=== PATIENT | male | born 1980 | race African-American/Black ===

== ENCOUNTER 2019-04-20 13:04 | Emergency (ER) | payer MEDICARE, OTHER ==
[~2019-04-20] VITALS: Ht 180.3 cm; Wt 104.3 kg
--- NOTE | 2019-04-20 13:07 | NUR ---
PT BIBRA FOR THE STREET FOR ANXIETY/PTSD AND S/I. PT TO BED 14, PT AAOX4, PT ON MONITOR, -SOB, SUICIDE PRECAUTIONS STARTED. VSEDITA Worley NOTED, PENDING MD HAINES
[2019-04-20 13:59] LABS: BASOPHILS # (AUTO) 0.1 /CMM (0.0-0.2); BASOPHILS % (AUTO) 0.7 % (0.0-2.0); HEMATOCRIT 42 % (39-51); HEMOGLOBIN 13.8 g/dL (13.5-17.5); LYMPHOCYTES # (AUTO) 0.8 /CMM (0.8-4.8); LYMPHOCYTES % (AUTO) 7.3 % (20.0-44.0); MEAN CORPUSCULAR HGB CONC 33 g/dl (31.0-36.0); MEAN CORPUSCULAR VOLUME 82 fL (80-96); MONOCYTES # (AUTO) 0.6 /CMM (0.1-1.30); MONOCYTES % (AUTO) 5.5 % (2.0-12.0); NEUTROPHILS # (AUTO) 9.1 /CMM (1.8-8.9); NEUTROPHILS % (AUTO) 83.5 % (43.0-81.0); PLATELET COUNT (AUTO) 260 /CMM (150-450); RED BLOOD CELL COUNT(AUTO) 5.12 MIL/uL (4.5-6.0); WHITE BLOOD COUNT (AUTO) 10.9 K/uL (4.3-11.0)
[2019-04-20 14:09] LABS: CARBON DIOXIDE 26 mmol/L (21-32); CHLORIDE 105 mmol/L (98-107); CREATININE 0.9 mg/dL (0.6-1.3); GLUCOSE 146 mg/dL (74-106); POTASSIUM 4.1 mmol/L (3.5-5.1); SODIUM SERUM 140 mmol/L (136-145); UREA NITROGEN, BLOOD 8 mg/dL (7-18)
[2019-04-20 14:16] LABS: ALANINE AMINOTRANSFERASE 42 U/L (12-78); ALBUMIN 3.9 g/dL (3.4-5.0); ALCOHOL, BLOOD < 3 mg/dL (0-0); ALKALINE PHOSPHATASE 131 U/L (46-116); ASPARTATE AMINOTRANSFERASE 16 U/L (15-37); BILIRUBIN,TOTAL 0.2 mg/dL (0.2-1.0); SALICYLATE 3.5 mg/dL (2.8-20.0); TOTAL PROTEIN, SERUM 7.4 g/dL (6.4-8.2)
[2019-04-20 14:17] LABS: ACETAMINOPHEN 0 ug/ml (10-30)
--- NOTE | 2019-04-20 14:31 | NUR ---
[facility] ETA 1 HR
[2019-04-20 14:44] LABS: APPEARANCE,URINE CLEAR (CLEAR); BILIRUBIN,URINE NEGATIVE (NEGATIVE); BLOOD, URINE NEGATIVE Ery/uL (NEGATIVE); COLOR,URINE YELLOW (YELLOW); KETONES,URINE 1+ (NEGATIVE); LEUKOCYTE ESTERASE ,URINE NEGATIVE (NEGATIVE); NITRITE, URINE NEGATIVE (NEGATIVE); PH,URINE 5.5 (5.0-8.0); PROTEIN,URINE NEGATIVE (NEGATIVE); UGLUCOSE NEGATIVE (NEGATIVE); UROBILINOGEN,URINE 0.2 EU/dL (0.2)
[2019-04-20 15:16] LABS: RBC,URINE 0-2 /HPF (0-2); WBC,URINE 0-2 /HPF (0-3)
[2019-04-20 15:17] LABS: BACTERIA,URINE None seen /HPF (None Seen); SQUAMOUS EPITHELIAL CELL,UR Few /HPF (None Seen)
--- NOTE | 2019-04-20 16:13 | NUR ---
Kevon velazquez in [facility] - 04/20/19 at 1614 by IVANNA STEPHANIE PEARCE
--- NOTE | 2019-04-20 16:14 | NUR ---
PT ACCEPTED AT [facility], [facility] [phone]
--- NOTE | 2019-04-20 16:18 | NUR ---
REPOR TGIVEN TO CARLOTA CARTER AT [facility].
--- NOTE | 2019-04-20 16:43 | NUR ---
AMBULANCE ETA 1800
[2019-04-20 17:00] VITALS: BP 106/53
--- NOTE | 2019-04-20 17:00 | NUR ---
VITAL SIGNS UPDATED.
--- NOTE | 2019-04-20 18:13 | NUR ---
PT TRANSPORTED TO [facility] VIA PRIVATE AMBULANCE, PT LEFT IN STBLE CONDITION, REPORT AND PPW GIVEN TO AMBULANCE STAFF. PT LEFT VIA GURNEY, VSS
== END 2019-04-20 18:16 | disposition short-term general hospital (02) ==
LOC: ER 13:07
DX: R45.851 Suicidal ideations (principal); F25.9 Schizoaffective disorder, unspecified; F43.10 Post-traumatic stress disorder, unspecified; I10 Essential (primary) hypertension; E11.9 Type 2 diabetes mellitus without complications; Z59.0 Homelessness
CPT/HCPCS: 36415; 80048; 80076; 80305; 80307; 80329; 81001; 85025; 99285; G0480; 81000-TC